=== PATIENT | male | born 1960 | race African-American/Black ===

== ENCOUNTER 2017-03-04 10:41 | Emergency (ER) | payer OTHER ==
[~2017-03-04] VITALS: Ht 170.2 cm; Wt 95.2 kg
--- NOTE | ~2017-03-04 | CT71 ---
[facility] A Service of [facility] RADIOLOGY TEXT RESULTS PATIENT: ENZO POON LOCATION: [place] : 58 UNIT #: [id number] AGE: [address]: Ignacio London MD SEX: M ORDER DR: [id number] [facility] [address] [facility]. [place], [place] [address] [id number] E MR#: [id number] Acc #: [id number] NAME: ENZO POON : 1960 SEX: M STUDY DATE/TIME: 03/04/2017 11:56 UNIT: [place] ROOM: STUDY DESCRIPTION: CT Head Wo Contrast Attending Physician: Ignacio London M.D. Ordering Physician: Ignacio London M.D. Primary Care Physician: Jann Jackson M.D. MEDICAL IMAGING REPORT This report is preliminary unless electronic signature is present EXAM CT head without contrast 03/04/2017 HISTORY 56-year-old male with dizziness beginning 02/27/2017. COMPARISON STUDIES Comparison none. TECHNIQUE Routine unenhanced axial images performed through the brain. This CT exam was performed with one or more of the following radiation dose reduction techniques: automatic exposure control, adjustment of mA and/or kV according to patient size, and iterative reconstruction. FINDINGS No hemorrhage, acute infarction, mass lesion, or abnormal extraaxial fluid collection. No midline shift or focal mass effect. Ventricular system is normal in size and configuration. No acute bony abnormality. Visualized paranasal sinuses and mastoid air cells are clear. IMPRESSION No acute intracranial abnormality. Dictated by... Gelacio Casas M.D. THIS IS AN ELECTRONICALLY VERIFIED REPORT Gelacio Casas M.D. at 03/07/2017 9:24 AM Liz TD: 03/04/2017 17:07 [facility] A Service of [facility] RADIOLOGY TEXT RESULTS PATIENT: ENZO POON LOCATION: [place] : 58 UNIT #: [id number] AGE: [address]: Ignacio London MD SEX: M ORDER DR: JOB #: [id number] MEDICAL IMAGING REPORT Page 1 of 1 COPY
--- NOTE | ~2017-03-04 | EKG ---
PATIENT: ENZO POON UNIT #: [id number] Ventricular Rate: 59 BPM Atrial Rate: 59 BPM P-R Interval: 146 ms QRS Duration: 94 ms Q-T Interval: 416 ms QTC Calculation(Bezet): 411 ms P [place]: 63 degrees Calculated R [place]: 58 degrees Calculated T [place]: 31 degrees Diagnosis Line: Sinus bradycardia Diagnosis Line: Otherwise normal ECG Diagnosis Line: No previous ECGs available Diagnosis Line: Confirmed by SATNAM SOLITARIO MD ([id number]) on Diagnosis Line: 03/04/2017 2:47:25 PM INTERPRETING MD: KASSI VIRAMONTES
[2017-03-04 11:25] LABS: BASOPHIL# 0.1 X10e3 (0-0.3); BASOPHIL% 0.9 % (0-2.5); EOSINOPHIL# 0.1 X10e3 (0-0.7); EOSINOPHIL% 2.2 % (0.0-7.0); HEMATOCRIT 46.4 % (38.0-50.0); HEMOGLOBIN 15.6 gm/dL (13.0-16.0); LYMPHOCYTE# 3.2 X10e3 (1.0-3.5); LYMPHOCYTE% 48.7 % (17.0-45.0); MEAN CELL VOLUME 93.6 FL (83-96); MEAN CORPUSCULAR HEMOGLOBIN 31.4 PG (28-34); MEAN CORPUSCULAR HGB CONC 33.5 g/dL (30-36); MEAN PLATELET VOLUME 7.7 FL (6.5-11.5); MONOCYTE# 0.9 X10e3 (0-1.0); MONOCYTE% 13.6 % (3.0-12.0); NEUTROPHIL# 2.2 X10e3 (1.5-7.1); NEUTROPHIL% 34.6 % (40-75); PLATELET COUNT 220 X10e3 (140-420); RED BLOOD COUNT 4.96 X10e (3.90-5.60); RED CELL DISTRIBUTION WIDTH 14.2 % (11.0-15.5); WHITE BLOOD COUNT 6.5 X10e3 (4.0-10.5)
[2017-03-04 11:28] LABS: DIFF IND NO
[2017-03-04 11:48] LABS: ALBUMIN SERUM 4.2 g/dL (3.5-5.0); BILIRUBIN, DIRECT 0.1 mg/dL (0.0-0.2); BILIRUBIN,INDIRECT 0.4 mg/dL (0.0-0.9); BILIRUBIN,TOTAL 0.5 mg/dL (0.2-2.0); BUN/CREATININE RATIO 9.16; CALCIUM SERUM 9.3 mg/dL (8.4-10.2); CREATININE SERUM 1.2 mg/dL (0.6-1.4); GLOM FILT RATE Estimated 77.4 mL/min (>60); PROTEIN TOTAL SERUM 7.6 g/dL (6.0-8.3)
== END 2017-03-04 12:20 | disposition home or self-care (01) ==
LOC: CED 10:41
PROVIDERS: Emergency Medicine
DX: R42 Dizziness and giddiness (principal); I10 Essential (primary) hypertension
CPT/HCPCS: 36415; 70450; 80048; 80076; 85025; 93005; 99284